=== PATIENT | female | born 1955 | race Caucasian/White ===

== ENCOUNTER → 2017-04-10 | Outpatient (CLI) | payer BC ==
--- NOTE | 2017-04-10 10:43 | RAD ---
Right ankle, 3 views, 04/10/2017: History: Ankle swelling No fracture or or dislocation is identified. No significant arthritic change is seen. There is mild subcutaneous edema. IMPRESSION: No acute bony abnormality is detected.
== END | disposition home or self-care (01) ==
LOC: DXRADRC 08:28
PROVIDERS: ATTEND Physician Assistant Medical
DX: M25.471 Effusion, right ankle (principal)
CPT/HCPCS: 73610